=== PATIENT | male | born 1955 | race African-American/Black ===

== ENCOUNTER 2021-07-23 13:02 | Inpatient (IN) ==
[~2021-07-23 13:02] MED LIST: ASPIRIN EC 325 MG TABLET PO SCH; CLORAZEPATE 3.75 MG TABLET PO PRN; GLUCAGON 1 MG VIAL IM PRN; MULTIVITAMIN (BEROCCA) TABLET PO SCH; NICOTINE 14 MG/24 HR PATCH TRANSDERM PRN; NITROGLYCERIN SL 0.4 MG TABLET SL PRN; THIAMINE 100 MG TABLET PO SCH; hydrALAZINE 20 MG/1 ML VIAL IV PRN; oxyCODONE/ACETAMINOPHEN 5-325 MG TABLET PO PRN
[2021-07-23 13:49] LABS: Basophils % 0.3 % (0.0-0.8); Eosinophils # 0.1 10*3/uL (0.0-0.87); Eosinophils % 0.6 % (0.00-10.9); Hematocrit 41.5 VOL% (42.0-52.0); Hemoglobin 12.9 GM/DL (14.0-18.0); Immature Granulocytes % 0.3 %; Immature Granulocytes Absolute 0.03 #; Lymphocytes # 2.1 10*3/uL (1.4-4.0); Lymphocytes % 24.2 % (21.2-54.2); Mean Corpuscular HGB Conc 31.1 GM/DL (32-36); Mean Corpuscular Volume 81.2 FL (87-102); Monocytes % 9.1 % (1.7-12.7); Neutrophils % 65.5 % (38.7-73.9); Platelet Count 262 T/CUMM (130-400); Red Blood Count 5.11 MC/CUMM (3.8-5.5); Red Cell Distribution Width 16.6 % (9.3-17.3); White Blood Count 8.8 T/CUMM (4-12)
[2021-07-23 14:09] LABS: Alanine Aminotransferase 35 U/L (16-61); Albumin 2.9 G/DL (3.4-5.0); Alkaline Phosphatase 119 U/L (45-117); Aspartate Amino Transferase 37 U/L (0-37); Blood Urea Nitrogen 25 MG/DL (7-18); Calcium 9.1 MG/DL (8.5-10.1); Carbon Dioxide 33 MMOL/L (21-32); Glucose 122 MG/DL (74-106); Osmolality,Calculated 277.8 MOS/KG (273-304); Potassium 3.6 MMOL/L (3.5-5.1); Sodium 137 MMOL/L (136-145); Total Protein 7.4 G/DL (6.4-8.2)
[2021-07-23 14:11] LABS: Estimated Glom Filtration Rate 0 ML/MIN
[2021-07-23] MEDS ORDERED: DEXTROSE 10% 250 ML BAG IV PRN (15:20)
[2021-07-23] MEDS ORDERED: MORPHINE 4 MG/1 ML VIAL IV PRN (15:21)
[2021-07-23] MEDS: FOLIC ACID 1 MG TABLET PO SCH (21:44)
[2021-07-24 03:32] LABS: ABG Base Excess 4.7 MMOL/L (-2.5-2.5); ABG HCO3 29.5 MMOL/L (20-26); ABG Oxygen Saturation 92.4 % (95-100); ABG PCO2 44.5 MM HG (35-48); ABG PH 7.439 (7.35-7.45); ABG PO2 65.6 MM HG (80-95); ABG TCO2 30.8 MMOL/L (23-27)
[2021-07-24 05:09] LABS: Basophils % 0.3 % (0.0-0.8); Eosinophils % 0.4 % (0.00-10.9); Hematocrit 41.2 VOL% (42.0-52.0); Immature Granulocytes % 0.2 %; Immature Granulocytes Absolute 0.02 #; Lymphocytes # 2.9 10*3/uL (1.4-4.0); Lymphocytes % 31.1 % (21.2-54.2); Mean Corpuscular HGB Conc 31.6 GM/DL (32-36); Mean Corpuscular Volume 79.5 FL (87-102); Mean Platelet Volume 11.7 FL (9.6-12.0); Monocytes % 8.4 % (1.7-12.7); Neutrophils % 59.6 % (38.7-73.9); Platelet Count 258 T/CUMM (130-400); Red Blood Count 5.18 MC/CUMM (3.8-5.5); Red Cell Distribution Width 16.8 % (9.3-17.3); White Blood Count 9.4 T/CUMM (4-12)
[2021-07-24 05:26] LABS: Bilirubin,Total 0.6 MG/DL (0.20-1.00); Calcium 9.3 MG/DL (8.5-10.1); Osmolality,Calculated 275.8 MOS/KG (273-304); Potassium 3.3 MMOL/L (3.5-5.1); Total Protein 7.6 G/DL (6.4-8.2)
[2021-07-24] MEDS: ASPIRIN EC 325 MG TABLET PO SCH (08:39)
[2021-07-24] MEDS: MULTIVITAMIN (BEROCCA) TABLET PO SCH (08:39)
[2021-07-24] MEDS: THIAMINE 100 MG TABLET PO SCH (08:39)
[2021-07-24] MEDS: FOLIC ACID 1 MG TABLET PO SCH (21:06)
[2021-07-25] MEDS: ASPIRIN EC 325 MG TABLET PO SCH (09:32)
[2021-07-25] MEDS: MULTIVITAMIN (BEROCCA) TABLET PO SCH (09:32)
[2021-07-25] MEDS: THIAMINE 100 MG TABLET PO SCH (09:32)
[2021-07-25] MEDS: FOLIC ACID 1 MG TABLET PO SCH (21:46)
[2021-07-26 05:10] LABS: Basophils % 0.3 % (0.0-0.8); Eosinophils % 0.3 % (0.00-10.9); Hematocrit 42.3 VOL% (42.0-52.0); Hemoglobin 13.5 GM/DL (14.0-18.0); Immature Granulocytes % 0.2 %; Immature Granulocytes Absolute 0.02 #; Lymphocytes # 2.7 10*3/uL (1.4-4.0); Lymphocytes % 26.8 % (21.2-54.2); Mean Corpuscular HGB Conc 31.9 GM/DL (32-36); Mean Corpuscular Volume 78.8 FL (87-102); Mean Platelet Volume 10.5 FL (9.6-12.0); Monocytes % 7.8 % (1.7-12.7); Neutrophils % 64.6 % (38.7-73.9); Platelet Count 273 T/CUMM (130-400); Red Blood Count 5.37 MC/CUMM (3.8-5.5); Red Cell Distribution Width 16.7 % (9.3-17.3); White Blood Count 10.2 T/CUMM (4-12)
[2021-07-26 05:33] LABS: Blood Urea Nitrogen 17 MG/DL (7-18); Calcium 8.8 MG/DL (8.5-10.1); Carbon Dioxide 31 MMOL/L (21-32); Estimated Glom Filtration Rate 115 ML/MIN; Glucose 101 MG/DL (74-106); Osmolality,Calculated 276.7 MOS/KG (273-304); Potassium 3.3 MMOL/L (3.5-5.1); Sodium 138 MMOL/L (136-145)
[2021-07-26] MEDS: THIAMINE 100 MG TABLET PO SCH (09:44)
[2021-07-26] MEDS: ASPIRIN EC 325 MG TABLET PO SCH (09:44)
[2021-07-26] MEDS: CHLORHEXIDINE 0.12% ORAL RINSE 60 ML BOTTLE SWISH/SPIT SCH ×2 (09:45→20:35)
[2021-07-26] MEDS: MULTIVITAMIN (BEROCCA) TABLET PO SCH (09:45)
[2021-07-26] MEDS ORDERED: MAGNESIUM SULF RIDER 2 GM/50 ML PREMIX IV ONE (12:19)
[2021-07-26] MEDS ORDERED: SODIUM CHLORIDE 0.9% 1,000 ML IV SCH (15:00)
[2021-07-26] MEDS: CHLORHEXIDINE 4% SOLN 118 ML BOTTLE TOP SCH ×2 (15:49→21:42)
[2021-07-26] MEDS ORDERED: DIAZEPAM 5 MG TABLET PO ONE (15:53)
[2021-07-26] MEDS ORDERED: PANTOPRAZOLE 40 MG TABLET PO ONE (15:53)
[2021-07-26] MEDS: ALBUTEROL/IPRATROPIUM 3 ML NEB RESP TX SCH ×2 (16:56→20:35)
[2021-07-26] MEDS: FOLIC ACID 1 MG TABLET PO SCH (20:31)
[2021-07-26] MEDS ORDERED: carvediloL 6.25 MG TABLET PO SCH (21:00)
[2021-07-27] MEDS: ALBUTEROL/IPRATROPIUM 3 ML NEB RESP TX SCH ×2 (00:09→08:28)
[2021-07-27] MEDS ORDERED: PAPAVERINE 60 MG/2 ML VIAL ONE (04:20)
[2021-07-27] MEDS ORDERED: VANCOMYCIN 1,000 MG VIAL ONE (04:20)
[2021-07-27] MEDS ORDERED: VANCOMYCIN 500 MG VIAL ONE (04:20)
[2021-07-27] MEDS: CHLORHEXIDINE 4% SOLN 118 ML BOTTLE TOP SCH (04:25)
[2021-07-27] MEDS ORDERED: CEFUROXIME INJ 1,500 MG in SODIUM CHLORIDE 0.9% 100 ML IV ONE (05:00)
[2021-07-27] MEDS ORDERED: DIAZEPAM 5 MG TABLET PO ONE (06:00)
[2021-07-27] MEDS ORDERED: PANTOPRAZOLE 40 MG TABLET PO ONE (06:00)
[2021-07-27] MEDS ORDERED: MIDAZOLAM 10 MG/2 ML VIAL ONE ×4 (06:02→09:34)
[2021-07-27] MEDS ORDERED: SUFentanil 250 MCG/5 ML AMP ONE ×2 (06:02)
[2021-07-27] MEDS ORDERED: SODIUM BICARBONATE 50 MEQ/50 ML VIAL IV ONE ×2 (06:55→10:34)
[2021-07-27] MEDS ORDERED: NITROPRUSSIDE 50 MG/2 ML VIAL ONE (06:55)
[2021-07-27] MEDS ORDERED: PHENYLEPHRINE DRIP 40 MG/250 ML PREMIX IV ONE (06:56)
[2021-07-27] MEDS ORDERED: CALCIUM CHLORIDE 1,000 MG/10 ML SYRINGE IV ONE (06:56)
[2021-07-27] MEDS ORDERED: POTASSIUM CHLORIDE RIDER 20 MEQ/100 ML PREMIX IV ONE (06:56)
[2021-07-27 07:49] LABS: ABG Base Excess 3.9 MMOL/L (-2.5-2.5); ABG HCO3 27.9 MMOL/L (20-26); ABG Oxygen Saturation 99.9 % (95-100); ABG PCO2 39.9 MM HG (35-48); ABG PH 7.454 (7.35-7.45); ABG TCO2 24.8 MMOL/L (23-27); Glucose Heart Surgery 90 MG/DL (74-106); Hematocrit Heart Surgery 36.1 PERCENT (42-52); Hemoglobin Heart Surgery 11.7 G/DL (14.0-18.0); Ionized Calcium Arterial 1.09 MMOL/L (1.21-1.46); PCO2 Patient Temp Arterial 39.9 MMHG; PH Patient Temp Arterial 7.454; Patient Temperature 37 CELCIUS; Potassium Heart/CVR 3.6 MMOL/L (3.5-5.1); Sodium Heart/CVR 141 MMOL/L (135-145)
[2021-07-27] MEDS: MULTIVITAMIN (BEROCCA) TABLET PO SCH (08:28)
[2021-07-27] MEDS: ASPIRIN EC 325 MG TABLET PO SCH (08:28)
[2021-07-27] MEDS: CHLORHEXIDINE 0.12% ORAL RINSE 60 ML BOTTLE SWISH/SPIT SCH ×2 (08:28→21:09)
[2021-07-27] MEDS: THIAMINE 100 MG TABLET PO SCH (08:29)
[2021-07-27] MEDS ORDERED: SUCCINYLCHOLINE 200 MG/10 ML VIAL ONE (08:37)
[2021-07-27] MEDS ORDERED: LIDOCAINE 2% 5 ML VIAL ONE ×2 (08:37→10:33)
[2021-07-27] MEDS ORDERED: VECURONIUM 10 MG VIAL IV ONE ×4 (08:37→09:33)
[2021-07-27] MEDS ORDERED: ETOMIDATE 40 MG/20 ML VIAL IV ONE (08:37)
[2021-07-27] MEDS ORDERED: AMINOCAPROIC ACID 5,000 MG/20 ML VIAL ONE ×4 (08:37)
[2021-07-27] MEDS ORDERED: PHENYLEPHRINE 10 MG/1 ML VIAL IV ONE (08:57)
[2021-07-27 08:58] LABS: Hematocrit Heart Surgery 23.3 PERCENT (42-52); Hemoglobin Heart Surgery 7.5 G/DL (14.0-18.0); PCO2 Patient Temp Venous 33.2 MM HG; PH Patient Temp Venous 7.537; PO2 Patient Temp Venous 37.9 MM HG; Potassium Heart/CVR 3.9 MMOL/L (3.5-5.1); VBG Base Excess 5.5 MEQ/L (0-4); VBG HCO3 29.2 MEQ/L (24-28); VBG Oxygen Saturation 80.1 %; VBG PCO2 36.6 MMHG (41-51); VBG PH 7.506; VBG PO2 43.5 MMHG (17-40); VBG Total CO2 27.2 MMOL/L
[2021-07-27] MEDS ORDERED: EPINEPHrine 1 MG/ML VIAL ONE (09:25)
[2021-07-27] MEDS ORDERED: CALCIUM CHLORIDE 1,000 MG/10 ML VIAL IV ONE (09:35)
[2021-07-27 09:36] LABS: Hemoglobin Heart Surgery 7.9 G/DL (14.0-18.0); PCO2 Patient Temp Venous 30.8 MM HG; PH Patient Temp Venous 7.551; PO2 Patient Temp Venous 33.6 MM HG; Potassium Heart/CVR 5.2 MMOL/L (3.5-5.1); VBG HCO3 26.4 MEQ/L (24-28); VBG Oxygen Saturation 71.5 %; VBG PCO2 30.8 MMHG (41-51); VBG PH 7.551; VBG PO2 33.6 MMHG (17-40); VBG Total CO2 27.4 MMOL/L
[2021-07-27 10:28] LABS: ABG Base Excess 3.4 MMOL/L (-2.5-2.5); ABG HCO3 27.5 MMOL/L (20-26); ABG PCO2 31.6 MM HG (35-48); ABG PH 7.523 (7.35-7.45); Glucose Heart Surgery 168 MG/DL (74-106); Hematocrit Heart Surgery 26.4 PERCENT (42-52); Hemoglobin Heart Surgery 8.5 G/DL (14.0-18.0); Ionized Calcium Arterial 1.14 MMOL/L (1.21-1.46); PCO2 Patient Temp Arterial 31.6 MMHG; PH Patient Temp Arterial 7.523; Patient Temperature 37 CELCIUS; Potassium Heart/CVR 3.8 MMOL/L (3.5-5.1); Sodium Heart/CVR 136 MMOL/L (135-145)
[2021-07-27] MEDS ORDERED: ALBUMIN 25% 25 GM/100 ML VIAL IV ONE (10:33)
[2021-07-27] MEDS ORDERED: MAGNESIUM SULFATE 5 GM/10 ML VIAL IV ONE (10:33)
[2021-07-27] MEDS ORDERED: HEPARIN 10,000 UNIT/10 ML VIAL ONE (10:34)
[2021-07-27] MEDS ORDERED: POTASSIUM CHLORIDE 20 MEQ/10 ML VIAL ONE (10:34)
[2021-07-27] MEDS ORDERED: PROTAMINE SULFATE 50 MG/5 ML VIAL IV ONE (10:34)
[2021-07-27] MEDS ORDERED: FUROSEMIDE 20 MG/2 ML VIAL ONE (10:34)
[2021-07-27] MEDS ORDERED: PROTAMINE SULFATE 250 MG/25 ML VIAL IV ONE (10:34)
[2021-07-27] MEDS ORDERED: MANNITOL 100 GM/500 ML BAG IV ONE (10:34)
[2021-07-27] MEDS ORDERED: DEXTROSE 5% KCL 20 MEQ 20 MEQ/1,000 ML BAG IV ONE (10:34)
[2021-07-27] MEDS ORDERED: methylPREDNISolone SOD SUC 1,000 MG/8 ML VIAL ONE (10:34)
[2021-07-27] MEDS ORDERED: ONDANSETRON 4 MG/2 ML VIAL IV PRN (11:01)
[2021-07-27] MEDS ORDERED: VECURONIUM 10 MG VIAL IV PRN ×2 (11:01)
[2021-07-27] MEDS ORDERED: INSULIN REGULAR 100 UNIT/ML IV ONE (11:01)
[2021-07-27] MEDS ORDERED: MIDAZOLAM 10 MG/2 ML VIAL IV PRN (11:01)
[2021-07-27] MEDS ORDERED: MIDAZOLAM 2 MG/2 ML VIAL IV PRN (11:01)
[2021-07-27] MEDS ORDERED: ACETAMINOPHEN 650 MG SUPP RECTAL PRN (11:01)
[2021-07-27] MEDS ORDERED: CHLORHEXIDINE 4% SOLN 118 ML BOTTLE TOP PRN (11:01)
[2021-07-27] MEDS ORDERED: MAGNESIUM SULF RIDER 2 GM/50 ML PREMIX IV PRN (11:01)
[2021-07-27] MEDS ORDERED: CALCIUM CHLORIDE 1,000 MG/10 ML SYRINGE IV PRN (11:01)
[2021-07-27] MEDS ORDERED: NITROPRUSSIDE 100 MG in DEXTROSE 5% 250 ML IV PRN (11:01)
[2021-07-27] MEDS ORDERED: DEXTROSE 10% 250 ML BAG IV PRN ×2 (11:01)
[2021-07-27] MEDS ORDERED: LACTATED RINGERS 250 ML IV PRN (11:01)
[2021-07-27] MEDS ORDERED: PHENYLEPHRINE DRIP 40 MG/250 ML PREMIX IV PRN (11:01)
[2021-07-27] MEDS ORDERED: MAGNESIUM SULF RIDER 4 GM/100 ML PREMIX IV PRN (11:01)
[2021-07-27] MEDS ORDERED: INSULIN REGULAR 100 UNIT/ML IV PRN (11:01)
[2021-07-27] MEDS: SODIUM CHLORIDE 0.45% 1,000 ML IV SCH ×2 (11:11)
[2021-07-27 11:43] LABS: ABG Base Excess 3.3 MMOL/L (-2.5-2.5); ABG HCO3 27.4 MMOL/L (20-26); ABG Oxygen Saturation 99.7 % (95-100); ABG PCO2 34.5 MM HG (35-48); ABG PH 7.492 (7.35-7.45); ABG TCO2 23.7 MMOL/L (23-27); Glucose Heart Surgery 185 MG/DL (74-106); Hematocrit Heart Surgery 32.8 PERCENT (42-52); Hemoglobin Heart Surgery 10.6 G/DL (14.0-18.0); Potassium Heart/CVR 3.4 MMOL/L (3.5-5.1)
[2021-07-27] MEDS: POTASSIUM CHLORIDE RIDER 20 MEQ/100 ML PREMIX IV PRN ×4 (11:50→22:16)
[2021-07-27 11:58] LABS: Basophils % 0.2 % (0.0-0.8); Hematocrit 32.4 VOL% (42.0-52.0); Hemoglobin 10.4 GM/DL (14.0-18.0); Immature Granulocytes % 0.7 %; Immature Granulocytes Absolute 0.13 #; Lymphocytes # 1.8 10*3/uL (1.4-4.0); Mean Corpuscular HGB Conc 32.1 GM/DL (32-36); Mean Corpuscular Volume 79.2 FL (87-102); Mean Platelet Volume 10.8 FL (9.6-12.0); Monocytes % 5.9 % (1.7-12.7); Neutrophils % 83.2 % (38.7-73.9); Platelet Count 201 T/CUMM (130-400); Red Blood Count 4.09 MC/CUMM (3.8-5.5); Red Cell Distribution Width 16.7 % (9.3-17.3); White Blood Count 18.1 T/CUMM (4-12)
[2021-07-27 12:04] LABS: INR 1.3; PT Patient Result 14.7 SECS (10.5-12.0); Partial Thromboplastin Time 29.5 SECS (23.8-32.1)
[2021-07-27] MEDS: ALBUMIN 5% 12.5 GM/250 ML VIAL IV PRN ×2 (12:06→12:10)
[2021-07-27] MEDS ORDERED: NITROGLYCERIN DRIP 50 MG/250 ML BOTTLE IV PRN (12:16)
[2021-07-27] MEDS ORDERED: ISOSORBIDE MONONITRATE 30 MG TABLET PO SCH (12:17)
[2021-07-27 12:19] LABS: Band Neutrophils 4 % (0-10); Lymphocytes 9 % (20-55); Segmented Neutrophils 82 % (50-85); Total Cells Counted 100
[2021-07-27 12:24] LABS: ABG HCO3 26.2 MMOL/L (20-26); ABG Oxygen Saturation 99.7 % (95-100); ABG PCO2 31.2 MM HG (35-48); ABG PH 7.506 (7.35-7.45); ABG TCO2 22.5 MMOL/L (23-27); Glucose Heart Surgery 171 MG/DL (74-106); Hematocrit Heart Surgery 28.7 PERCENT (42-52); Hemoglobin Heart Surgery 9.3 G/DL (14.0-18.0); Potassium Heart/CVR 3.3 MMOL/L (3.5-5.1)
[2021-07-27 12:25] LABS: High Sensitive Troponin I* 3662.1 ng/L (0-78)
[2021-07-27 12:30] LABS: Ovalocytes Slight; Platelet Estimate Adequate
[2021-07-27 12:31] LABS: Albumin 2.4 G/DL (3.4-5.0); Calcium 8.5 MG/DL (8.5-10.1); Osmolality,Calculated 280.7 MOS/KG (273-304); Potassium 3.5 MMOL/L (3.5-5.1); Total Protein 5.5 G/DL (6.4-8.2)
[2021-07-27] MEDS: POTASSIUM CHLORIDE RIDER 10 MEQ/100 ML PREMIX IV PRN ×4 (12:45→17:51)
[2021-07-27] MEDS: INSULIN REGULAR DRIP 100 ML IV SCH (13:38)
[2021-07-27 14:13] LABS: ABG Base Excess 2.9 MMOL/L (-2.5-2.5); ABG Oxygen Saturation 99.5 % (95-100); ABG PCO2 31.1 MM HG (35-48); ABG PH 7.518 (7.35-7.45); ABG TCO2 22.7 MMOL/L (23-27); Glucose Heart Surgery 176 MG/DL (74-106); Hematocrit Heart Surgery 32.2 PERCENT (42-52); Hemoglobin Heart Surgery 10.4 G/DL (14.0-18.0); Potassium Heart/CVR 3.6 MMOL/L (3.5-5.1)
[2021-07-27 17:12] LABS: ABG Base Excess 3.1 MMOL/L (-2.5-2.5); ABG HCO3 27.2 MMOL/L (20-26); ABG Oxygen Saturation 99.8 % (95-100); ABG PCO2 31.4 MM HG (35-48); ABG PH 7.519 (7.35-7.45); Glucose Heart Surgery 115 MG/DL (74-106); Hematocrit Heart Surgery 31.8 PERCENT (42-52); Hemoglobin Heart Surgery 10.3 G/DL (14.0-18.0); Potassium Heart/CVR 3.6 MMOL/L (3.5-5.1)
[2021-07-27] MEDS: CEFUROXIME INJ 1,500 MG in SODIUM CHLORIDE 0.9% 100 ML IV SCH (18:45)
[2021-07-27 19:05] LABS: ABG Base Excess 2.4 MMOL/L (-2.5-2.5); ABG HCO3 24.2 MMOL/L (20-26); ABG Oxygen Saturation 98.9 % (95-100); ABG PCO2 28.6 MM HG (35-48); ABG PH 7.546 (7.35-7.45); ABG PO2 232.4 MM HG (80-95); ABG TCO2 25.1 MMOL/L (23-27); Glucose Heart Surgery 79 MG/DL (74-106); Hemoglobin Heart Surgery 10.6 G/DL (14.0-18.0); Potassium Heart/CVR 4.1 MMOL/L (3.5-5.1)
[2021-07-27] MEDS: MORPHINE 4 MG/1 ML VIAL IV PRN (19:12)
[2021-07-27 19:26] LABS: CKMB % 2.4 %; High Sensitive Troponin I* 2675.5 ng/L (0-78)
[2021-07-27 22:09] LABS: ABG Base Excess 1.7 MMOL/L (-2.5-2.5); ABG Oxygen Saturation 99.3 % (95-100); ABG PCO2 30.9 MM HG (35-48); ABG PH 7.503 (7.35-7.45); ABG TCO2 21.6 MMOL/L (23-27); Glucose Heart Surgery 128 MG/DL (74-106); Hematocrit Heart Surgery 33.9 PERCENT (42-52); Potassium Heart/CVR 4.1 MMOL/L (3.5-5.1)
[2021-07-28 00:22] LABS: ABG Base Excess -0.7 MMOL/L (-2.5-2.5); ABG HCO3 23.5 MMOL/L (20-26); ABG Oxygen Saturation 98.4 % (95-100); ABG PO2 143.7 MM HG (80-95); ABG TCO2 24.6 MMOL/L (23-27); Glucose Heart Surgery 124 MG/DL (74-106); Hemoglobin Heart Surgery 11.3 G/DL (14.0-18.0); Potassium Heart/CVR 4.6 MMOL/L (3.5-5.1)
[2021-07-28] MEDS ORDERED: FUROSEMIDE 40 MG/4 ML VIAL IV ONE (01:02)
[2021-07-28 02:04] LABS: ABG Base Excess -0.6 MMOL/L (-2.5-2.5); ABG HCO3 23.9 MMOL/L (20-26); ABG PCO2 38.8 MM HG (35-48); ABG PH 7.399 (7.35-7.45); ABG TCO2 21.6 MMOL/L (23-27); Glucose Heart Surgery 132 MG/DL (74-106); Hematocrit Heart Surgery 33.5 PERCENT (42-52); Hemoglobin Heart Surgery 10.9 G/DL (14.0-18.0); Potassium Heart/CVR 4.6 MMOL/L (3.5-5.1)
[2021-07-28] MEDS: POTASSIUM CHLORIDE RIDER 10 MEQ/100 ML PREMIX IV PRN (02:17)
[2021-07-28 02:58] LABS: ABG Base Excess 0.5 MMOL/L (-2.5-2.5); ABG HCO3 24.9 MMOL/L (20-26); ABG PCO2 39.6 MM HG (35-48); ABG TCO2 22.6 MMOL/L (23-27); Glucose Heart Surgery 131 MG/DL (74-106); Hematocrit Heart Surgery 33.3 PERCENT (42-52); Hemoglobin Heart Surgery 10.8 G/DL (14.0-18.0); Potassium Heart/CVR 5.1 MMOL/L (3.5-5.1)
[2021-07-28] MEDS: MORPHINE 4 MG/1 ML VIAL IV PRN (03:07)
[2021-07-28 04:03] LABS: ABG Base Excess 0.4 MMOL/L (-2.5-2.5); ABG HCO3 24.8 MMOL/L (20-26); ABG Oxygen Saturation 99.1 % (95-100); ABG PCO2 39.8 MM HG (35-48); ABG PH 7.406 (7.35-7.45); ABG TCO2 22.7 MMOL/L (23-27); Glucose Heart Surgery 133 MG/DL (74-106); Potassium Heart/CVR 4.8 MMOL/L (3.5-5.1)
[2021-07-28 04:06] LABS: Basophils % 0.2 % (0.0-0.8); Hematocrit 30.8 VOL% (42.0-52.0); Hemoglobin 9.9 GM/DL (14.0-18.0); Immature Granulocytes % 0.5 %; Immature Granulocytes Absolute 0.09 #; Lymphocytes # 1.7 10*3/uL (1.4-4.0); Lymphocytes % 8.9 % (21.2-54.2); Mean Corpuscular HGB Conc 32.1 GM/DL (32-36); Mean Corpuscular Volume 79.4 FL (87-102); Mean Platelet Volume 11.1 FL (9.6-12.0); Monocytes % 3.8 % (1.7-12.7); Neutrophils % 86.6 % (38.7-73.9); Platelet Count 182 T/CUMM (130-400); Red Blood Count 3.88 MC/CUMM (3.8-5.5); Red Cell Distribution Width 16.7 % (9.3-17.3); White Blood Count 19.5 T/CUMM (4-12)
[2021-07-28 04:26] LABS: Band Neutrophils 1 % (0-10); Hypochromia 1+; Lymphocytes 11 % (20-55); Microcytosis 1+; Platelet Estimate Adequate; Segmented Neutrophils 87 % (50-85); Total Cells Counted 100
[2021-07-28 04:27] LABS: CKMB % 1.5 %
[2021-07-28 04:30] LABS: High Sensitive Troponin I* 4094.1 ng/L (0-78)
[2021-07-28 04:31] LABS: Albumin 2.6 G/DL (3.4-5.0); Bilirubin,Direct 0.22 MG/DL (0.0-0.20); Bilirubin,Total 0.7 MG/DL (0.20-1.00); Calcium 7.8 MG/DL (8.5-10.1); Osmolality,Calculated 281.5 MOS/KG (273-304); Total Protein 5.2 G/DL (6.4-8.2)
[2021-07-28] MEDS ORDERED: NITROPRUSSIDE 50 MG/2 ML VIAL ONE (04:57)
[2021-07-28 05:22] LABS: ABG Base Excess -0.5 MMOL/L (-2.5-2.5); ABG HCO3 24.2 MMOL/L (20-26); ABG Oxygen Saturation 98.1 % (95-100); ABG PO2 133.8 MM HG (80-95); ABG TCO2 25.4 MMOL/L (23-27); Glucose Heart Surgery 127 MG/DL (74-106); Hemoglobin Heart Surgery 10.5 G/DL (14.0-18.0); Potassium Heart/CVR 4.6 MMOL/L (3.5-5.1)
[2021-07-28] MEDS: CEFUROXIME INJ 1,500 MG in SODIUM CHLORIDE 0.9% 100 ML IV SCH ×2 (06:59→18:43)
[2021-07-28] MEDS: KETOROLAC 15 MG/1 ML VIAL IV SCH ×3 (08:15→21:18)
[2021-07-28] MEDS: PANTOPRAZOLE 40 MG TABLET PO SCH (08:33)
[2021-07-28] MEDS: carvediloL 6.25 MG TABLET PO SCH ×2 (08:33→21:27)
[2021-07-28] MEDS: ASPIRIN EC 325 MG TABLET PO SCH (08:33)
[2021-07-28] MEDS: CHLORHEXIDINE 0.12% ORAL RINSE 60 ML BOTTLE SWISH/SPIT SCH ×3 (08:34→21:17)
[2021-07-28] MEDS: MAGNESIUM SULF RIDER 2 GM/50 ML PREMIX IV PRN (10:30)
[2021-07-28] MEDS ORDERED: ACETAMINOPHEN 325 MG TABLET PO PRN (11:51)
[2021-07-28] MEDS ORDERED: ALUMINUM/MAGNES/SIMETH MAX STR 30 ML UDCUP PO PRN (11:51)
[2021-07-28] MEDS ORDERED: GLUCAGON 1 MG VIAL IM PRN (11:51)
[2021-07-28] MEDS ORDERED: DEXTROSE 10% 250 ML BAG IV PRN (11:51)
[2021-07-28] MEDS ORDERED: MAGNESIUM SULF RIDER 4 GM/100 ML PREMIX IV PRN (11:51)
[2021-07-28] MEDS ORDERED: SODIUM CHLOR 0.45% KCL 20 MEQ 20 MEQ/1,000 ML BAG IV SCH (11:51)
[2021-07-28] MEDS ORDERED: MAGNESIUM HYDROXIDE SUSP 30 ML UDCUP PO PRN (11:51)
[2021-07-28] MEDS ORDERED: ONDANSETRON 4 MG/2 ML VIAL IV PRN (11:51)
[2021-07-28] MEDS: INSULIN REGULAR 100 UNIT/ML SUBCUT SCH ×3 (13:08→21:19)
[2021-07-28] MEDS: DOCUSATE SODIUM 100 MG CAPSULE PO SCH (13:18)
[2021-07-28] MEDS: FERROUS SULFATE 325 MG TABLET PO SCH (13:18)
[2021-07-28] MEDS: oxyCODONE/ACETAMINOPHEN 5-325 MG TABLET PO PRN (14:35)
[2021-07-28] MEDS: INSULIN REGULAR DRIP 100 ML IV SCH (14:44)
[2021-07-28] MEDS: SODIUM CHLORIDE 0.45% 1,000 ML IV SCH ×2 (14:46)
[2021-07-28] MEDS: ALBUTEROL/IPRATROPIUM 3 ML NEB RESP TX SCH ×2 (15:39→19:58)
[2021-07-28 17:09] LABS: CKMB % 0.8 %
[2021-07-28 17:12] LABS: High Sensitive Troponin I* 7196.9 ng/L (0-78)
[2021-07-28] MEDS ORDERED: ATORVASTATIN 80 MG TABLET PO SCH (21:00)
[2021-07-29] MEDS: ALBUTEROL/IPRATROPIUM 3 ML NEB RESP TX SCH ×4 (01:14→19:10)
[2021-07-29] MEDS: KETOROLAC 15 MG/1 ML VIAL IV SCH ×2 (01:27→10:17)
[2021-07-29] MEDS: oxyCODONE/ACETAMINOPHEN 5-325 MG TABLET PO PRN (04:55)
[2021-07-29] MEDS ORDERED: FUROSEMIDE 40 MG/4 ML VIAL IV ONE ×2 (06:00→09:15)
[2021-07-29 08:16] LABS: Basophils % 0.1 % (0.0-0.8); Hematocrit 36.3 VOL% (42.0-52.0); Hemoglobin 11.1 GM/DL (14.0-18.0); Immature Granulocytes % 0.8 %; Immature Granulocytes Absolute 0.17 #; Lymphocytes # 1.8 10*3/uL (1.4-4.0); Lymphocytes % 8.3 % (21.2-54.2); Mean Corpuscular HGB Conc 30.6 GM/DL (32-36); Mean Corpuscular Volume 80.8 FL (87-102); Mean Platelet Volume 12.1 FL (9.6-12.0); Monocytes % 5.2 % (1.7-12.7); Neutrophils % 85.6 % (38.7-73.9); Platelet Count 153 T/CUMM (130-400); Red Blood Count 4.49 MC/CUMM (3.8-5.5); Red Cell Distribution Width 17.1 % (9.3-17.3); White Blood Count 21.7 T/CUMM (4-12)
[2021-07-29 08:34] LABS: Hypochromia Slight; Lymphocytes 6 % (20-55); Microcytosis Slight; Platelet Estimate Adequate; Segmented Neutrophils 92 % (50-85); Total Cells Counted 100
[2021-07-29 08:35] LABS: Albumin 2.7 G/DL (3.4-5.0); Bilirubin,Direct 0.46 MG/DL (0.0-0.20); Bilirubin,Total 0.9 MG/DL (0.20-1.00); Calcium 7.9 MG/DL (8.5-10.1); Osmolality,Calculated 284.1 MOS/KG (273-304); Total Protein 6.4 G/DL (6.4-8.2)
[2021-07-29 08:47] LABS: Albumin 2.7 G/DL (3.4-5.0); Bilirubin,Direct 0.51 MG/DL (0.0-0.20); Bilirubin,Indirect 0.4 MG/DL (0.0-1.0); Bilirubin,Total 0.9 MG/DL (0.20-1.00); High Sensitive Troponin I* 7178.4 ng/L (0-78); Total Protein 6.4 G/DL (6.4-8.2)
[2021-07-29 09:46] LABS: Albumin 2.7 G/DL (3.4-5.0); Bilirubin,Total 0.9 MG/DL (0.20-1.00); Calcium 7.8 MG/DL (8.5-10.1); Osmolality,Calculated 283.2 MOS/KG (273-304); Total Protein 6.4 G/DL (6.4-8.2)
[2021-07-29 09:48] LABS: Potassium 6.1 MMOL/L (3.5-5.1)
[2021-07-29] MEDS: FERROUS SULFATE 325 MG TABLET PO SCH (09:55)
[2021-07-29] MEDS: carvediloL 6.25 MG TABLET PO SCH (09:55)
[2021-07-29] MEDS: CHLORHEXIDINE 0.12% ORAL RINSE 60 ML BOTTLE SWISH/SPIT SCH ×2 (09:56→20:45)
[2021-07-29] MEDS ORDERED: SODIUM POLYSTYRENE SULFATE 15 GM/60 ML BOTTLE PO ONE (09:58)
[2021-07-29] MEDS: INSULIN REGULAR 100 UNIT/ML SUBCUT SCH ×4 (10:16→20:45)
[2021-07-29] MEDS: ASPIRIN EC 325 MG TABLET PO SCH (10:17)
[2021-07-29] MEDS: DOCUSATE SODIUM 100 MG CAPSULE PO SCH (10:17)
[2021-07-29] MEDS: PANTOPRAZOLE 40 MG TABLET PO SCH (10:19)
[2021-07-29] MEDS: THIAMINE 100 MG TABLET PO SCH (10:27)
[2021-07-29 15:19] LABS: Albumin 2.7 G/DL (3.4-5.0); Bilirubin,Total 0.7 MG/DL (0.20-1.00); Calcium 7.7 MG/DL (8.5-10.1); Osmolality,Calculated 286.4 MOS/KG (273-304); Potassium 5.8 MMOL/L (3.5-5.1); Total Protein 6.4 G/DL (6.4-8.2)
[2021-07-29] MEDS: SODIUM CHLORIDE 0.9% 1,000 ML IV SCH (16:30)
[2021-07-29] MEDS: FOLIC ACID 1 MG TABLET PO SCH (20:38)
[2021-07-29] MEDS ORDERED: carvediloL 3.125 MG TABLET PO SCH (21:00)
[2021-07-29] MEDS: DOBUTamine 500 MG/250 ML PREMIX IV PRN (22:29)
[2021-07-30] MEDS: ALBUTEROL/IPRATROPIUM 3 ML NEB RESP TX SCH ×4 (00:56→19:21)
[2021-07-30] MEDS: SODIUM CHLORIDE 0.9% 1,000 ML IV SCH ×2 (02:08→12:08)
[2021-07-30 03:44] LABS: Basophils % 0.1 % (0.0-0.8); Hematocrit 34.3 VOL% (42.0-52.0); Hemoglobin 10.4 GM/DL (14.0-18.0); Immature Granulocytes % 0.8 %; Immature Granulocytes Absolute 0.15 #; Lymphocytes # 1.7 10*3/uL (1.4-4.0); Lymphocytes % 8.5 % (21.2-54.2); Mean Corpuscular HGB Conc 30.3 GM/DL (32-36); Mean Corpuscular Volume 81.1 FL (87-102); Mean Platelet Volume 11.9 FL (9.6-12.0); Monocytes % 6.6 % (1.7-12.7); Platelet Count 150 T/CUMM (130-400); Red Blood Count 4.23 MC/CUMM (3.8-5.5); Red Cell Distribution Width 16.8 % (9.3-17.3); White Blood Count 19.9 T/CUMM (4-12)
[2021-07-30 03:53] LABS: Albumin 2.6 G/DL (3.4-5.0); Bilirubin,Direct 0.23 MG/DL (0.0-0.20); Bilirubin,Total 0.7 MG/DL (0.20-1.00); Calcium 7.3 MG/DL (8.5-10.1); Potassium 5.3 MMOL/L (3.5-5.1); Total Protein 6.2 G/DL (6.4-8.2)
[2021-07-30 04:09] LABS: Acanthocytes Few; Albumin 2.5 G/DL (3.4-5.0); Band Neutrophils 1 % (0-10); Bilirubin,Direct 0.27 MG/DL (0.0-0.20); Bilirubin,Indirect 0.3 MG/DL (0.0-1.0); Bilirubin,Total 0.6 MG/DL (0.20-1.00); CKMB % 1.3 %; Hypochromia 1+; Lymphocytes 4 % (20-55); Microcytosis 1+; Ovalocytes Few; Segmented Neutrophils 91 % (50-85); Total Cells Counted 100; Total Protein 6.1 G/DL (6.4-8.2)
[2021-07-30 04:10] LABS: Burr Cells Slight; High Sensitive Troponin I* 5395.5 ng/L (0-78); Target Cells Slight
[2021-07-30 04:11] LABS: Platelet Estimate Adequate
[2021-07-30] MEDS: INSULIN REGULAR 100 UNIT/ML SUBCUT SCH ×4 (08:00→20:50)
[2021-07-30] MEDS ORDERED: amLODIPine 2.5 MG TABLET PO SCH (09:00)
[2021-07-30] MEDS: ASPIRIN EC 325 MG TABLET PO SCH (09:11)
[2021-07-30] MEDS: MULTIVITAMIN (BEROCCA) TABLET PO SCH (09:12)
[2021-07-30] MEDS: FERROUS SULFATE 325 MG TABLET PO SCH (09:12)
[2021-07-30] MEDS: DOCUSATE SODIUM 100 MG CAPSULE PO SCH (09:12)
[2021-07-30] MEDS: THIAMINE 100 MG TABLET PO SCH (09:12)
[2021-07-30] MEDS: PANTOPRAZOLE 40 MG TABLET PO SCH (09:12)
[2021-07-30] MEDS: CHLORHEXIDINE 0.12% ORAL RINSE 60 ML BOTTLE SWISH/SPIT SCH ×2 (09:12→20:50)
[2021-07-30] MEDS: oxyCODONE/ACETAMINOPHEN 5-325 MG TABLET PO PRN ×2 (12:59→23:39)
[2021-07-30] MEDS: ZALEPLON 5 MG CAPSULE PO PRN (20:49)
[2021-07-30] MEDS: FOLIC ACID 1 MG TABLET PO SCH (20:50)
[2021-07-31] MEDS: SODIUM CHLORIDE 0.9% 1,000 ML IV SCH ×2 (01:29→15:41)
[2021-07-31] MEDS: ALBUTEROL/IPRATROPIUM 3 ML NEB RESP TX SCH ×4 (01:32→19:39)
[2021-07-31 04:37] LABS: Basophils % 0.1 % (0.0-0.8); Hematocrit 29.7 VOL% (42.0-52.0); Hemoglobin 9.3 GM/DL (14.0-18.0); Immature Granulocytes % 0.5 %; Immature Granulocytes Absolute 0.08 #; Lymphocytes # 2.7 10*3/uL (1.4-4.0); Mean Corpuscular HGB Conc 31.3 GM/DL (32-36); Mean Corpuscular Volume 79.4 FL (87-102); Mean Platelet Volume 11.3 FL (9.6-12.0); Monocytes % 9.7 % (1.7-12.7); Neutrophils % 71.7 % (38.7-73.9); Platelet Count 171 T/CUMM (130-400); Red Blood Count 3.74 MC/CUMM (3.8-5.5); Red Cell Distribution Width 16.4 % (9.3-17.3)
[2021-07-31 04:56] LABS: Albumin 2.5 G/DL (3.4-5.0); Bilirubin,Total 0.5 MG/DL (0.20-1.00); Calcium 7.2 MG/DL (8.5-10.1); Osmolality,Calculated 298.4 MOS/KG (273-304); Potassium 4.4 MMOL/L (3.5-5.1); Total Protein 5.7 G/DL (6.4-8.2)
[2021-07-31 05:42] LABS: Hypochromia Slight; Lymphocytes 21 % (20-55); Microcytosis Slight; Nucleated Red Blood Cells 1 (0-5); Platelet Estimate Normal; Segmented Neutrophils 71 % (50-85); Total Cells Counted 100
[2021-07-31] MEDS: DOBUTamine 500 MG/250 ML PREMIX IV PRN (06:13)
[2021-07-31] MEDS: INSULIN REGULAR 100 UNIT/ML SUBCUT SCH ×4 (07:33→20:41)
[2021-07-31] MEDS: MULTIVITAMIN (BEROCCA) TABLET PO SCH (09:11)
[2021-07-31] MEDS: ASPIRIN EC 325 MG TABLET PO SCH (09:11)
[2021-07-31] MEDS: DOCUSATE SODIUM 100 MG CAPSULE PO SCH (09:11)
[2021-07-31] MEDS: FERROUS SULFATE 325 MG TABLET PO SCH (09:12)
[2021-07-31] MEDS: THIAMINE 100 MG TABLET PO SCH (09:12)
[2021-07-31] MEDS: CHLORHEXIDINE 0.12% ORAL RINSE 60 ML BOTTLE SWISH/SPIT SCH ×2 (09:12→20:41)
[2021-07-31] MEDS: PANTOPRAZOLE 40 MG TABLET PO SCH (09:12)
[2021-07-31] MEDS: oxyCODONE/ACETAMINOPHEN 5-325 MG TABLET PO PRN ×2 (13:28→20:41)
[2021-07-31] MEDS: carvediloL 3.125 MG TABLET PO SCH (20:40)
[2021-07-31] MEDS: FOLIC ACID 1 MG TABLET PO SCH (20:41)
[2021-07-31] MEDS: ZALEPLON 5 MG CAPSULE PO PRN (20:42)
[2021-08-01] MEDS: ALBUTEROL/IPRATROPIUM 3 ML NEB RESP TX SCH ×4 (00:14→19:17)
[2021-08-01 04:37] LABS: Basophils % 0.1 % (0.0-0.8); Hematocrit 33.9 VOL% (42.0-52.0); Hemoglobin 10.3 GM/DL (14.0-18.0); Immature Granulocytes % 0.5 %; Immature Granulocytes Absolute 0.06 #; Lymphocytes # 2.5 10*3/uL (1.4-4.0); Lymphocytes % 18.7 % (21.2-54.2); Mean Corpuscular HGB Conc 30.4 GM/DL (32-36); Mean Corpuscular Volume 81.1 FL (87-102); Mean Platelet Volume 11.1 FL (9.6-12.0); Monocytes % 10.6 % (1.7-12.7); NRBC # 0.02 10*3/uL; Neutrophils % 70.1 % (38.7-73.9); Platelet Count 207 T/CUMM (130-400); Red Blood Count 4.18 MC/CUMM (3.8-5.5); Red Cell Distribution Width 16.7 % (9.3-17.3); White Blood Count 13.1 T/CUMM (4-12)
[2021-08-01 04:53] LABS: Albumin 2.6 G/DL (3.4-5.0); Bilirubin,Direct 0.23 MG/DL (0.0-0.20); Bilirubin,Indirect 0.4 MG/DL (0.0-1.0); Bilirubin,Total 0.6 MG/DL (0.20-1.00); CKMB % 0.6 %; Calcium 7.8 MG/DL (8.5-10.1); Potassium 4.7 MMOL/L (3.5-5.1); Total Protein 6.3 G/DL (6.4-8.2)
[2021-08-01 04:58] LABS: Osmolality,Calculated 287.7 MOS/KG (273-304)
[2021-08-01 05:02] LABS: High Sensitive Troponin I* 4554.7 ng/L (0-78)
[2021-08-01] MEDS: SODIUM CHLORIDE 0.9% 1,000 ML IV SCH (05:11)
[2021-08-01] MEDS: oxyCODONE/ACETAMINOPHEN 5-325 MG TABLET PO PRN (06:13)
[2021-08-01] MEDS: INSULIN REGULAR 100 UNIT/ML SUBCUT SCH ×4 (07:55→23:54)
[2021-08-01] MEDS: ASPIRIN EC 325 MG TABLET PO SCH (08:21)
[2021-08-01] MEDS: THIAMINE 100 MG TABLET PO SCH (08:21)
[2021-08-01] MEDS: carvediloL 3.125 MG TABLET PO SCH ×2 (08:21→20:15)
[2021-08-01] MEDS: CHLORHEXIDINE 0.12% ORAL RINSE 60 ML BOTTLE SWISH/SPIT SCH (08:21)
[2021-08-01] MEDS: FERROUS SULFATE 325 MG TABLET PO SCH (08:21)
[2021-08-01] MEDS: DOCUSATE SODIUM 100 MG CAPSULE PO SCH (08:21)
[2021-08-01] MEDS: MULTIVITAMIN (BEROCCA) TABLET PO SCH (08:21)
[2021-08-01] MEDS: PANTOPRAZOLE 40 MG TABLET PO SCH (08:21)
[2021-08-01] MEDS ORDERED: FUROSEMIDE 40 MG/4 ML VIAL IV ONE (08:30)
[2021-08-01] MEDS: amLODIPine 5 MG TABLET PO SCH (08:54)
[2021-08-01] MEDS: CLORAZEPATE 3.75 MG TABLET PO SCH ×2 (08:55→20:15)
[2021-08-01] MEDS ORDERED: MAGNESIUM HYDROXIDE SUSP 30 ML UDCUP PO PRN (10:13)
[2021-08-01] MEDS ORDERED: GLUCAGON 1 MG VIAL IM PRN (10:13)
[2021-08-01] MEDS ORDERED: ACETAMINOPHEN 325 MG TABLET PO PRN (10:13)
[2021-08-01] MEDS ORDERED: MAGNESIUM SULF RIDER 4 GM/100 ML PREMIX IV PRN (10:13)
[2021-08-01] MEDS ORDERED: POTASSIUM CHLORIDE 20 MEQ TABLET PO PRN (10:13)
[2021-08-01] MEDS ORDERED: MAGNESIUM SULF RIDER 2 GM/50 ML PREMIX IV PRN (10:13)
[2021-08-01] MEDS ORDERED: ALUMINUM/MAGNES/SIMETH MAX STR 30 ML UDCUP PO PRN (10:13)
[2021-08-01] MEDS ORDERED: DEXTROSE 50% 25 GM/50 ML VIAL IV PRN (10:13)
[2021-08-01] MEDS ORDERED: ONDANSETRON 4 MG/2 ML VIAL IV PRN (10:13)
[2021-08-01] MEDS ORDERED: hydrALAZINE 20 MG/1 ML VIAL IV ONE (10:48)
[2021-08-01] MEDS: hydrALAZINE 10 MG TABLET PO SCH ×2 (16:32→20:15)
[2021-08-01] MEDS: FOLIC ACID 1 MG TABLET PO SCH (20:15)
[2021-08-01] MEDS: ZALEPLON 5 MG CAPSULE PO PRN (20:15)
[2021-08-01] MEDS ORDERED: HALOPERIDOL 5 MG/ML AMP IV ONE (20:55)
[2021-08-02] MEDS: ALBUTEROL/IPRATROPIUM 3 ML NEB RESP TX SCH ×4 (01:22→19:11)
[2021-08-02] MEDS: hydrALAZINE 10 MG TABLET PO SCH ×3 (05:39→22:36)
[2021-08-02] MEDS: carvediloL 3.125 MG TABLET PO SCH ×3 (05:39→22:36)
[2021-08-02] MEDS: FOLIC ACID 1 MG TABLET PO SCH ×2 (05:39→22:36)
[2021-08-02] MEDS: CLORAZEPATE 3.75 MG TABLET PO SCH ×3 (05:39→22:36)
[2021-08-02 05:55] LABS: Basophils % 0.1 % (0.0-0.8); Eosinophils # 0.1 10*3/uL (0.0-0.87); Eosinophils % 0.4 % (0.00-10.9); Hematocrit 34.1 VOL% (42.0-52.0); Hemoglobin 10.6 GM/DL (14.0-18.0); Immature Granulocytes % 0.4 %; Immature Granulocytes Absolute 0.06 #; Lymphocytes # 2.6 10*3/uL (1.4-4.0); Lymphocytes % 17.3 % (21.2-54.2); Mean Corpuscular HGB Conc 31.1 GM/DL (32-36); Mean Corpuscular Volume 78.8 FL (87-102); Mean Platelet Volume 11.1 FL (9.6-12.0); Monocytes % 11.4 % (1.7-12.7); Neutrophils % 70.4 % (38.7-73.9); Platelet Count 250 T/CUMM (130-400); Red Blood Count 4.33 MC/CUMM (3.8-5.5); Red Cell Distribution Width 16.8 % (9.3-17.3); White Blood Count 15.3 T/CUMM (4-12)
[2021-08-02] MEDS ORDERED: FUROSEMIDE 40 MG/4 ML VIAL IV ONE (06:00)
[2021-08-02 06:17] LABS: Alanine Aminotransferase 383 U/L (16-61); Albumin 2.4 G/DL (3.4-5.0); Alkaline Phosphatase 129 U/L (45-117); Aspartate Amino Transferase 157 U/L (0-37); Bilirubin,Indirect 0.4 MG/DL (0.0-1.0); Blood Urea Nitrogen 31 MG/DL (7-18); Calcium 8.5 MG/DL (8.5-10.1); Carbon Dioxide 28 MMOL/L (21-32); Estimated Glom Filtration Rate 122 ML/MIN; Glucose 91 MG/DL (74-106); Osmolality,Calculated 283.5 MOS/KG (273-304); Potassium 3.9 MMOL/L (3.5-5.1); Sodium 139 MMOL/L (136-145); Total Protein 5.9 G/DL (6.4-8.2)
[2021-08-02 06:20] LABS: Hypochromia 1+; Lymphocytes 16 % (20-55); Microcytosis 1+; Ovalocytes Slight; Platelet Estimate Normal; Segmented Neutrophils 75 % (50-85); Target Cells Slight; Total Cells Counted 100
[2021-08-02] MEDS: INSULIN REGULAR 100 UNIT/ML SUBCUT SCH ×4 (10:29→22:37)
[2021-08-02] MEDS: MULTIVITAMIN (BEROCCA) TABLET PO SCH (10:29)
[2021-08-02] MEDS: DOCUSATE SODIUM 100 MG CAPSULE PO SCH (10:30)
[2021-08-02] MEDS: amLODIPine 5 MG TABLET PO SCH (10:30)
[2021-08-02] MEDS: PANTOPRAZOLE 40 MG TABLET PO SCH (10:30)
[2021-08-02] MEDS: ASPIRIN EC 325 MG TABLET PO SCH (10:30)
[2021-08-02] MEDS: FERROUS SULFATE 325 MG TABLET PO SCH (10:30)
[2021-08-02] MEDS: THIAMINE 100 MG TABLET PO SCH (10:31)
[2021-08-02] MEDS: POLYETHYLENE GLYCOL POWDER 17 GM PACK PO SCH (10:31)
[2021-08-02] MEDS: SODIUM CHLORIDE 0.9% 1,000 ML IV SCH ×2 (10:37→12:53)
[2021-08-02] MEDS: POTASSIUM CHLORIDE 20 MEQ TABLET PO PRN ×2 (13:34→14:51)
[2021-08-02] MEDS: MAGNESIUM SULF RIDER 2 GM/50 ML PREMIX IV PRN (13:35)
[2021-08-02] MEDS ORDERED: HALOPERIDOL 5 MG TABLET PO SCH (21:00)
[2021-08-03] MEDS: ALBUTEROL/IPRATROPIUM 3 ML NEB RESP TX SCH ×3 (00:05→19:28)
[2021-08-03 05:05] LABS: Basophils % 0.1 % (0.0-0.8); Eosinophils # 0.3 10*3/uL (0.0-0.87); Eosinophils % 1.7 % (0.00-10.9); Hematocrit 31.2 VOL% (42.0-52.0); Hemoglobin 10.1 GM/DL (14.0-18.0); Immature Granulocytes % 0.5 %; Immature Granulocytes Absolute 0.08 #; Lymphocytes # 2.8 10*3/uL (1.4-4.0); Lymphocytes % 18.1 % (21.2-54.2); Mean Corpuscular HGB Conc 32.4 GM/DL (32-36); Mean Corpuscular Volume 78.8 FL (87-102); Mean Platelet Volume 10.4 FL (9.6-12.0); Monocytes % 11.1 % (1.7-12.7); Neutrophils % 68.5 % (38.7-73.9); Platelet Count 256 T/CUMM (130-400); Red Blood Count 3.96 MC/CUMM (3.8-5.5); Red Cell Distribution Width 17.2 % (9.3-17.3); White Blood Count 15.3 T/CUMM (4-12)
[2021-08-03 05:29] LABS: Alanine Aminotransferase 299 U/L (16-61); Albumin 2.3 G/DL (3.4-5.0); Alkaline Phosphatase 121 U/L (45-117); Aspartate Amino Transferase 100 U/L (0-37); Bilirubin,Indirect 0.6 MG/DL (0.0-1.0); Blood Urea Nitrogen 18 MG/DL (7-18); Calcium 8.1 MG/DL (8.5-10.1); Carbon Dioxide 29 MMOL/L (21-32); Estimated Glom Filtration Rate 122 ML/MIN; Glucose 92 MG/DL (74-106); Osmolality,Calculated 284.1 MOS/KG (273-304); Potassium 4.2 MMOL/L (3.5-5.1); Sodium 142 MMOL/L (136-145)
[2021-08-03] MEDS: INSULIN REGULAR 100 UNIT/ML SUBCUT SCH ×4 (08:48→21:47)
[2021-08-03] MEDS: POLYETHYLENE GLYCOL POWDER 17 GM PACK PO SCH (09:16)
[2021-08-03] MEDS: ASPIRIN EC 325 MG TABLET PO SCH (09:16)
[2021-08-03] MEDS: DOCUSATE SODIUM 100 MG CAPSULE PO SCH (09:16)
[2021-08-03] MEDS: MULTIVITAMIN (BEROCCA) TABLET PO SCH (09:16)
[2021-08-03] MEDS: carvediloL 3.125 MG TABLET PO SCH ×2 (09:16→21:49)
[2021-08-03] MEDS: amLODIPine 5 MG TABLET PO SCH (09:16)
[2021-08-03] MEDS: THIAMINE 100 MG TABLET PO SCH (09:16)
[2021-08-03] MEDS: FERROUS SULFATE 325 MG TABLET PO SCH (09:17)
[2021-08-03] MEDS: hydrALAZINE 10 MG TABLET PO SCH ×2 (09:17→21:49)
[2021-08-03] MEDS: PANTOPRAZOLE 40 MG TABLET PO SCH (09:17)
[2021-08-03] MEDS: CLORAZEPATE 3.75 MG TABLET PO SCH (09:17)
[2021-08-03] MEDS: MAGNESIUM SULF RIDER 2 GM/50 ML PREMIX IV PRN (09:18)
[2021-08-03] MEDS: oxyCODONE/ACETAMINOPHEN 5-325 MG TABLET PO PRN (09:21)
[2021-08-03] MEDS: guaiFENesin 200 MG/10 ML UDCUP PO SCH ×2 (15:36→21:50)
[2021-08-03] MEDS: FOLIC ACID 1 MG TABLET PO SCH (21:49)
[2021-08-04] MEDS: ALBUTEROL/IPRATROPIUM 3 ML NEB RESP TX SCH ×3 (00:02→13:01)
[2021-08-04 04:53] LABS: Basophils % 0.1 % (0.0-0.8); Eosinophils # 0.2 10*3/uL (0.0-0.87); Eosinophils % 1.3 % (0.00-10.9); Hematocrit 33.7 VOL% (42.0-52.0); Hemoglobin 10.3 GM/DL (14.0-18.0); Immature Granulocytes % 0.6 %; Immature Granulocytes Absolute 0.09 #; Lymphocytes % 18.8 % (21.2-54.2); Mean Corpuscular HGB Conc 30.6 GM/DL (32-36); Mean Corpuscular Volume 82.2 FL (87-102); Mean Platelet Volume 10.8 FL (9.6-12.0); Monocytes % 10.8 % (1.7-12.7); Neutrophils % 68.4 % (38.7-73.9); Platelet Count 295 T/CUMM (130-400); Red Cell Distribution Width 17.4 % (9.3-17.3); White Blood Count 15.9 T/CUMM (4-12)
[2021-08-04 05:08] LABS: Calcium 8.8 MG/DL (8.5-10.1); Osmolality,Calculated 280.4 MOS/KG (273-304); Potassium 4.3 MMOL/L (3.5-5.1)
[2021-08-04] MEDS: oxyCODONE/ACETAMINOPHEN 5-325 MG TABLET PO PRN (05:37)
[2021-08-04] MEDS: hydrALAZINE 10 MG TABLET PO SCH (09:32)
[2021-08-04] MEDS: ASPIRIN EC 325 MG TABLET PO SCH (09:32)
[2021-08-04] MEDS: MULTIVITAMIN (BEROCCA) TABLET PO SCH (09:32)
[2021-08-04] MEDS: amLODIPine 5 MG TABLET PO SCH (09:32)
[2021-08-04] MEDS: POLYETHYLENE GLYCOL POWDER 17 GM PACK PO SCH (09:32)
[2021-08-04] MEDS: FERROUS SULFATE 325 MG TABLET PO SCH (09:32)
[2021-08-04] MEDS: carvediloL 3.125 MG TABLET PO SCH (09:32)
[2021-08-04] MEDS: THIAMINE 100 MG TABLET PO SCH (09:33)
[2021-08-04] MEDS: PANTOPRAZOLE 40 MG TABLET PO SCH (09:33)
[2021-08-04] MEDS: DOCUSATE SODIUM 100 MG CAPSULE PO SCH (09:33)
[2021-08-04] MEDS: guaiFENesin 200 MG/10 ML UDCUP PO SCH (09:38)
[2021-08-04] MEDS: INSULIN REGULAR 100 UNIT/ML SUBCUT SCH ×2 (09:39→12:34)
[2021-08-04 12:21] VITALS: BP 150/64
== END 2021-08-04 17:00 | disposition home health service (06) | DRG 236 ==
LOC: N.ADMINP 13:17 → N.CVR 07-27 11:39 → N.TELES 07-28 16:02 → N.ICU 07-29 14:06 → N.TELES 08-01 13:46